=== PATIENT | female | born 1985 | race Two or more races ===

== ENCOUNTER 2016-11-28 07:38 | Emergency (ER) | payer SELFPAY ==
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
[2016-11-28] MEDS ORDERED: POLYMYXIN B SULFATE/TMP OPH SOLN 10 ML OD SCH (11:15)
[2016-11-28 11:40] VITALS: BP 121/76
== END 2016-11-28 11:47 | disposition home or self-care (01) ==
LOC: ER 07:38
DX: S09.93XA Unspecified injury of face, initial encounter (principal); S05.91XA Unspecified injury of right eye and orbit, initial encounter; Y08.89XA Assault by other specified means, initial encounter; F17.200 Nicotine dependence, unspecified, uncomplicated
CPT/HCPCS: 99284; 70450; 70486; J3490